=== PATIENT | male | born 1970 | race Hispanic/Latino ===

== ENCOUNTER 2018-11-07 09:46 | Emergency (ER) | payer OTHER ==
[2018-11-07 10:09] VITALS: BMI 23.0
[2018-11-07 10:12] VITALS: BP 101/70; PULSE 99; RESP 16; TEMP 97.6; O2SAT 99
--- NOTE | 2018-11-07 10:45 | C.PDOC ---
History Of Present Illness 47 y/o male with a PMHx of depression presents to the ED for med refill of Seroquel 200 mg BID. Patient had a 30-day prescription but recently went to rehab and states he was not given the rest of his medication when he was discharged. He then went to see his doctor in [place], who gave him a prescription for 15 days. Patient is now out of the Seroquel, requesting refill. The office in [place] will not refill it until patient comes in to be seen. Patient states he is homeless, currently living with the [employer] here, and is unable to get to [place]. Otherwise patient denies having any suicidal or homicidal ideation. Reports feeling slightly anxious. No other complaints offered. Time Seen by Provider: 11/07/18 10:31 Chief Complaint (Nursing): Medical Clearance History Per: Patient History/Exam Limitations: no limitations Onset/Duration Of Symptoms: Days Current Symptoms Are (Timing): Still Present Past Medical History Reviewed: Historical Data, Nursing Documentation, Vital Signs Vital Signs: Last Vital Signs Temp 97.6 F 11/07/18 10:09 Pulse 99 H 11/07/18 10:09 Resp 16 11/07/18 10:09 BP 101/70 11/07/18 10:09 Pulse Ox 99 11/07/18 10:09 - Medical History PMH: Anxiety, Depression Other Surgeries: Left shoulder surgery Family History: States: Unknown Family Hx - Social History Hx Alcohol Use: No Hx Substance Use: No - Immunization History Hx Tetanus Toxoid Vaccination: Yes Hx Influenza Vaccination: No Hx Pneumococcal Vaccination: No Review Of Systems Except As Marked, All Systems Reviewed And Found Negative. Constitutional: Negative for: Fever Cardiovascular: Negative for: Chest Pain, Palpitations Respiratory: Negative for: Shortness of Breath Gastrointestinal: Negative for: Vomiting Neurological: Negative for: Headache Psych: Positive for: Anxiety. Negative for: Suicidal ideation (or homicidal) Physical Exam - Physical Exam Appears: Non-toxic, No Acute Distress Skin: Warm, Dry, No Rash Head: Atraumatic, Normacephalic Eye(s): bilateral: Normal Inspection Neck: Normal ROM Chest: Symmetrical Respiratory: No Accessory Muscle Use, Other (No respiratory distress) Extremity: Bilateral: Normal Color And Temperature Pulses: Left Radial: Normal, Right Radial: Normal Neurological/Psych: Oriented x3 Gait: Steady ED Course And Treatment O2 Sat by Pulse Oximetry: 99 (RA) Pulse Ox Interpretation: Normal Medical Decision Making Medical Decision Making: Impression: Visit for med refill Plan: Patient is stable for discharge, provided with Rx for Seroquel x 7 days. smokehouse worker spoke with patient regarding importance of follow up, outpatient resources and referral provided. Disposition Counseled Patient/Family Regarding: Need For Followup, Rx Given - Disposition Disposition: HOME/ ROUTINE Disposition Time: 10:48 Condition: GOOD Additional Instructions: ELMO POLLACK, thank you for letting us take care of you today. Your provider was Lauren Rivera MD and you were treated for MED CEAR. The emergency medical care you received today was directed at your acute symptoms. If you were prescribed any medication, please fill it and take as directed. It may take several days for your symptoms to resolve. Return to the Emergency Department if your symptoms worsen, do not improve, or if you have any other problems. Please contact your doctor or call one of the physicians/clinics you have been referred to that are listed on the Patient Visit Information form that is included in your discharge packet. Bring any paperwork you were given at discharge with you along with any medications you are taking to your follow up visit. Our treatment cannot replace ongoing medical care by a primary care provider outside of the emergency department. Thank you for allowing the [facility] team to be part of your care today. If you had an X-Ray or CT scan: A Radiologist will review the ED reading if any change in treatment is needed we will contact you. If you had a blood, urine, or wound culture: It will take several days for the results, if any change in treatment is needed we will contact you. If you had an STI test: It will take 48 hours for the results. Please call after 1 week if you have not heard back. Prescriptions: QUEtiapine [SEROquel] 200 mg PO BID #14 tab Instructions: Anxiety, Adult (DC) Forms: [employer] [place] (Yakut) - POA Present On Arrival: None - Clinical Impression Clinical Impression: Medication refill - Scribe Statement The provider has reviewed the documentation as recorded by the Petra Olivai Provider Attestation: All medical record entries made by the Yefriibyaya were at my direction and personally dictated by me. I have reviewed the chart and agree that the record accurately reflects my personal performance of the history, physical exam, medical decision making, and the department course for this patient. I have also personally directed, reviewed, and agree with the discharge instructions and disposition.
== END 2018-11-07 12:21 | disposition home or self-care (01) ==
LOC: C.ER 09:46
DX: Z76.0 Encounter for issue of repeat prescription (principal)